=== PATIENT | female | born 1955 | race Caucasian/White ===

== ENCOUNTER 2020-02-17 07:28 | Inpatient (IN) ==
[2020-02-17] MEDS ORDERED: IOPAMIDOL 100 ML BOTTLE IV ONE (07:29)
[2020-02-17] MEDS ORDERED: 0.9 % SODIUM CHLORIDE 1,000 ML IV ONE (07:41)
[2020-02-17] MEDS ORDERED: IPRATROPIUM/ALBUTEROL 3 ML AMPUL.NEB NEB ONE (07:41)
--- NOTE | 2020-02-17 07:54 | Emergency Department Note ---
SOB HPI General Chief Complaint: Shortness of Breath/Dyspnea Stated Complaint: SOB Time Seen by Provider: 02/17/20 07:31 Source: patient Mode of arrival: ambulatory Limitations: no limitations History of Present Illness HPI Narrative: Narrative: 64-year-old female comes in for shortness of breath x9 days since leaving the hospital after getting her right knee worked on. Dr. Herzog replaced her right knee here on the . She was discharged on the and has had trouble breathing ever since. She does have a history of asthma but never smoked. Today it just got so bad that she came in. Oxygen levels are low 90s. She was on aspirin but this was upsetting her stomach and causing nausea- so she stopped this 3 days ago. She has been vomiting and having diarrhea as well. No fever or exposure to COVID. She has been up and around and thinks the knee is actually healing well. Related Data Home Medications Medication Instructions Recorded Confirmed trazodone 150 mg tablet 150 mg PO HS 05/22/16 02/17/20 citalopram 40 mg tablet 40 mg PO DAILY 90 Days 05/05/18 02/17/20 albuterol sulfate 1 inh INHALATION DAILYP PRN 02/01/20 02/17/20 cyclobenzaprine 5 mg PO DAILYP PRN 02/01/20 02/17/20 folic acid 1 mg PO DAILY 02/01/20 02/17/20 furosemide 20 mg PO DAILY 02/01/20 02/17/20 meloxicam 15 mg PO DAILY 02/01/20 02/17/20 metoprolol tartrate 50 mg PO BID 02/01/20 02/17/20 potassium chloride [Klor-Con M20] 20 meq PO [facility] 02/01/20 02/17/20 pregabalin [Lyrica] 150 mg PO BID 02/01/20 02/17/20 Previous Rx's Medication Instructions Recorded aspirin 325 mg PO BID #60 tab 02/07/20 docusate sodium 100 mg PO BID #60 cap 02/07/20 hydrocodone-acetaminophen 1 - 2 tab PO Q4HP PRN #75 tab 02/07/20 methotrexate sodium 2.5 mg tablet See Rx Instructions .ROUTE 02/07/20 .COMPLEX #40 unknown measurement unit code: each Allergies Allergy/AdvReac Type Severity Reaction Status Date / Time No Known Drug Allergies Allergy Verified 02/17/20 07:28 Review of Systems ROS ROS Narrative: Narrative: All systems ED: reviewed and negative except as stated. [facility] Narrative Patient History Narrative: Narrative: Medical/Surgical/Family History All Active Problems (Updated 02/17/20 @ 08:34 by Miguel Sanon MD) Respiratory failure with hypoxia (Acute) Hip pain, bilateral (Acute) Back pain (Chronic) Encounter for long-term current use of high risk medication (Acute) Hx of abdominal hysterectomy (Chronic) Rheumatoid arthritis (Acute) Abnormal laboratory test (Chronic) Constipation, unspecified (Chronic) Thoracic back pain (Chronic) Bilateral knee pain (Acute) Head trauma (Chronic) Fibromyalgia (Acute) Depression with anxiety (Chronic) DJD (degenerative joint disease) (Acute) Sleep disorder (Chronic) Memory loss (Chronic) Neuropathy (Chronic) Chronic low back pain (Chronic) SOB (shortness of breath) (Chronic) Fatigue (Chronic) Leukocytosis (Chronic) Headache (Chronic) Osteopenia (Chronic) Hypovitaminosis D (Chronic) Neck pain (Chronic) Sicca syndrome (Chronic) Thrombocytopenia (Chronic) Hypertension (Chronic) Peripheral edema (Chronic) Dysphagia (Chronic) Closed displaced fracture of surgical neck of right humerus (Chronic) Abdominal pain (Chronic) Medical History (Updated 02/17/20 @ 08:34 by Miguel Sanon MD) Abdominal pain (Chronic) Abnormal laboratory test (Chronic) Back pain (Chronic) Bilateral knee pain (Acute) Chronic low back pain (Chronic) Closed displaced fracture of surgical neck of right humerus (Chronic) Constipation, unspecified (Chronic) Depression with anxiety (Chronic) DJD (degenerative joint disease) (Acute) Dysphagia (Chronic) Encounter for long-term current use of high risk medication (Acute) Fatigue (Chronic) Fibromyalgia (Acute) Head trauma (Chronic) Headache (Chronic) Hip pain, bilateral (Acute) Hypertension (Chronic) Hypovitaminosis D (Chronic) Leukocytosis (Chronic) Memory loss (Chronic) Neck pain (Chronic) Neuropathy (Chronic) Osteopenia (Chronic) Peripheral edema (Chronic) Rheumatoid arthritis (Acute) Sicca syndrome (Chronic) Sleep disorder (Chronic) SOB (shortness of breath) (Chronic) Thoracic back pain (Chronic) Thrombocytopenia (Chronic) Surgical History History of carpal tunnel surgery of right wrist (Chronic) History of knee replacement (Acute) Hx of abdominal hysterectomy (Chronic) Hx of appendectomy (Chronic 12/25/09) Hx of arthroscopy of right knee (Chronic) 2006 Hx of section (Chronic) x2 Hx of heart surgery (Chronic) 1986 Hx of surgical procedure (Chronic) tumor removed Family History Father Myocardial infarction Social History Smoking Status: Never smoker Alcohol Intake Frequency: a few times a month Exam Narrative Narrative: Narrative: Overweight female, with some respiratory distress. She is unable to speak in full sentences without gasping for air. Normocephalic atraumatic. Conjunctive are clear sclerae white nonicteric. No nasal discharge or congestion. Oropharynx pink and moist. Neck is supple without lymphadenopathy or thyromegaly. Heart is regular rhythm but mildly tachycardic. She is also tachypneic. I cannot hear a murmur. Lungs are basically clear to auscultation but body habitus limits. I do not hear any rales but she does hav e end expiratory wheezes. Abdomen is soft nontender nondistended. Looking at her right knee the wound site is not particularly erythematous. I see no drainage. Looks like it is healing well but significant compromise. She can move her legs around without difficulty. No pedal edema General Limitations: no limitations Course Vital Signs Vital signs: Vital Signs Temperature 97.4 F 02/17/20 07:28 Pulse Rate 97 H 02/17/20 07:28 Respiratory Rate 24 H 02/17/20 07:28 Blood Pressure 169/118 02/17/20 07:28 Pulse Oximetry (%) 90 02/17/20 07:28 Temperature 97.4 F 02/17/20 07:28 Pulse Rate 97 H 02/17/20 07:28 Respiratory Rate 24 H 02/17/20 08:21 Blood Pressure 169/118 02/17/20 07:28 Pulse Oximetry (%) 90 02/17/20 07:28 MDM MDM Narrative Medical decision making narrative: Narrative: Dyspnea x9 days status post right knee replacement not on anticoagulant secondary to stomach upset. Differential diagnosis includes PE/DVT versus asthma exacerbation versus pneumonia or other pulmonary infection. We will start with work-up with x-ray and laboratory. We will give her a breathing treatment and titrate oxygen. Get ABG. EKG shows repolarization abnormality in the V1 through V6 leads-unclear significance. Continue work-up awaiting labs. Chest x-ray shows possible left lower lobe infiltrate but this is equivocal as it is portable. We will order CT angiogram to further evaluate and check for pulmonary emboli. Arterial blood gas shows hyperventilation with elevated pH. However her PO2 is low so we will start her on oxygen. Chem-8 is unrevealing Shift change came and patient will be checked out to Dr. rodriguez for further care and evaluation Lab Data Lab results reviewed: Yes I reviewed the patient's lab results. Lab results narrative: Arterial blood gas shows pH 7.49 PCO2 of 30 PO2 of 50 lactic acid of 2.0 which is normal Result diagrams: 02/17/20 07:42 Labs: Lab Results 02/17/20 Range/Units 07:42 POC Hct 38.0 (36.0-48.0) % POC Sodium 141 (133-145) mmol/L POC Potassium 4.3 (3.3-5.1) mmol/L POC Chloride 107 (96-108) mmol/L POC Total CO2 20 L (22-30) mmol/L POC BUN 18 (8-23) mg/dl POC Creatinine 0.7 (0.6-1.1) mg/dl POC Glucose 157 H (70-105) mg/dL POC WB Ioniz Calcium 1.18 (1.16-1.32) mmol/L Radiology Data Radiology results reviewed: Yes I reviewed the patient's radiology results. Radiology results narrative: Chest x-ray one-view portable shows large heart possible left lower lobe infiltrate but this could be artifact. EKG Data EKG #1: EKG attestation: Yes I reviewed and interpreted this EKG. EKG results narrative: EKG shows sinus rhythm with a rate of 92. She does have T wave inversion in V1 through V6 which is new compared to 10 days ago- this repolarization abnormality could represent ischemia in the right context however it is nonspecific Discharge Plan Patient/Caregiver Discharge Instructions Pt seen by VETERINARY PHYSIOLOGIST/PA only: No Clinical Impression: Respiratory failure with hypoxia Qualifiers: Chronicity: acute Qualified Code(s): J96.01 - Acute respiratory failure with h ypoxia Patient Disposition: Still a Patient Condition: Serious Follow up with: Shanel Obrien ARNP [Primary Care Provider] - Prescriptions: No Action methotrexate sodium 2.5 mg tablet See Rx Instructions .ROUTE .COMPLEX Qty: 40 RF: 0 trazodone 150 mg tablet 150 mg PO HS RF: 0 citalopram 40 mg tablet 40 mg PO DAILY 90 Days RF: 0 potassium chloride [Klor-Con M20] 20 mEq Tablet,Er Particles/Crystals 20 meq PO [facility] RF: 0 metoprolol tartrate 50 mg Tablet 50 mg PO BID RF: 0 furosemide 20 mg Tablet 20 mg PO DAILY RF: 0 cyclobenzaprine 5 mg Tablet 5 mg PO DAILYP PRN (Reason: MUSCLE SPASMS) RF: 0 pregabalin [Lyrica] 150 mg Capsule 150 mg PO BID RF: 0 meloxicam 15 mg tablet 15 mg PO DAILY RF: 0 folic acid 1 mg tablet 1 mg PO DAILY RF: 0 albuterol sulfate 90 mcg/actuation Hfa Aerosol Inhaler 1 inh INHALATION DAILYP PRN (Reason: Shortness Of Breath) RF: 0 hydrocodone-acetaminophen 10-325 mg Tablet 1 - 2 tab PO Q4HP PRN (Reason: Pain Level 3-6) Qty: 75 RF: 0 aspirin 325 mg Tablet,Delayed Release (Dr/Ec) 325 mg PO BID Qty: 60 RF: 0 docusate sodium 100 mg Capsule 100 mg PO BID Qty: 60 RF: 0
[2020-02-17 08:06] LABS: POC Blood Urea Nitrogen 18 mg/dl (8-23); POC CO2 20 mmol/L (22-30); POC Calcium, Ionized 1.18 mmol/L (1.16-1.32); POC Chloride 107 mmol/L (96-108); POC Creatinine 0.7 mg/dl (0.6-1.1); POC Glucose, Random 157 mg/dL (70-105); POC Potassium 4.3 mmol/L (3.3-5.1); POC Sodium 141 mmol/L (133-145)
[2020-02-17 08:30] LABS: Basophils # (Auto) 0.06 K/mcL (0.00-0.30); Basophils % (Auto) 0.4 % (0.0-2.0); Eosinophils # (Auto) 0.01 K/mcL (0.00-0.70); Eosinophils % (Auto) 0.1 % (0.0-7.0); Granulocytes % (Auto) 83.3 % (38.0-78.0); Hematocrit 38.2 % (34.1-44.9); Hemoglobin 12.4 g/dL (11.2-15.7); Lymphocytes # (Auto) 1.78 K/mcL (1.50-4.80); Lymphocytes % (Auto) 10.4 % (15.5-49.0); Mean Cell Volume 99.7 fL (80.0-100.0); Mean Corpuscular HGB Conc 32.5 g/dL (31.0-36.0); Mean Platelet Volume 9.3 fL (7.4-10.4); Monocytes # (Auto) 0.99 K/mcL (0.10-0.90); Monocytes % (Auto) 5.8 % (1.0-12.0); Platelet Count 345 K/mcL (140-440); RBC 3.83 M/mcL (3.59-5.38); Red Cell Distribution Width 15.4 % (11.5-14.5); WBC 17.1 K/mcL (4.50-11.00)
--- NOTE | 2020-02-17 09:23 | Cat Scan Report ---
CLINICAL INFORMATION: Dyspnea and elevated d-dimer. COMPARISON: None. TECHNIQUE: ml of Isovue-370 were injected intravenously. Using SmartPrep to maximize pulmonary artery opacification, .625mm helical slices were obtained from the lung apices through the lung bases. Following reconstruction, 2.5 mm sagittal, coronal, and axial reformations were processed. The exam was reviewed at mediastinal, lung, and bone windows. The exam was performed using radiation dose optimization techniques including, but not limited to, automated exposure control, adjustment of the mA and/or kV according to patient size and use of iterative reconstruction technique. FINDINGS: There are multiple pulmonary emboli: Subocclusive in the lateral right pulmonary artery with occlusive emboli extending into the right middle lobe occluding the medial and lateral segments, anterior and posterior segments of the right upper lobe, subocclusive right lower lobe extending into the superior, medial lateral, and posterior basilar segmental arteries. On the left side, there are occlusive emboli in the anterior segment left upper lobe and right lower lobe artery with extension into the anterior medial and lateral basilar segments. The central pulmonary arteries are enlarged compatible with pulmonary hypertension related to the embolic load. In addition, the right atrium and ventricle are mildly enlarged and there is contrast reflux into the intrahepatic IVC. Findings are supportive of elevated right heart pressures. Aorta is unremarkable. There is no adenopathy in the mediastinal hilar or axillary regions. Esophagus grossly normal. Thyroid unremarkable. Pulmonary parenchymal windows show the lungs are clear. No effusions. Bones and soft tissues are normal. IMPRESSION: 1. Multiple bilateral pulmonary emboli with increased central pulmonary artery diameter and asymmetric enlargement of the right heart chambers compatible with pulmonary hypertension and elevated right heart pressures related to the embolic load Interpreted and Authenticated by: Mykel Mohr 02/17/20
--- NOTE | 2020-02-17 09:24 | XRay Report ---
CLINICAL INFORMATION: Dyspnea COMPARISON: 05/22/2016 TECHNIQUE: Portable FINDINGS: The heart size, mediastinum and pulmonary vessels are unremarkable. The lungs are clear. There are no effusions. The bones and soft tissues are within normal limits. IMPRESSION: Normal chest. Interpreted and Authenticated by: Mykel Mohr 02/17/20
--- NOTE | 2020-02-17 10:48 | Ultrasound Report ---
CLINICAL INFORMATION: History of pulmonary embolus COMPARISON: None. FINDINGS: The entire deep venous system, both lower extremities, including the common femoral, superficial femoral, popliteal and paired trifurcation calf veins are easily compressible and show normal venous blood flow on color and spectral Doppler. No evidence of thrombus IMPRESSION: Negative exam - no evidence of deep vein thrombosis in either lower extremity. Interpreted and Authenticated by: Mykel Mohr 02/17/20
[2020-02-17] MEDS ORDERED: METOPROLOL TARTRATE 50 MG TABLET PO ONE (11:24)
[2020-02-17] MEDS ORDERED: APIXABAN 5 MG TABLET PO SCH ×2 (11:26→21:00)
--- NOTE | 2020-02-17 12:54 | Internal Med History&Physical ---
HPI History of Present Illness Patient information: Note initiated : 02/17/20 at 12:54 pm Service Date, if different from initiated Date: [] Patient: Candie Gross a 64 y/o F admitted on for Shortness of breath. Chief Complaint: [] History of present illness: Ms. Gross is a 64 year old F morbidly obese with a BMI over 37 and recently underwent right total knee arthroplasty on 02/06. Patient was discharged following surgery however started experiencing shortness of breath a week ago. Symptoms progressed to the point patient could barely lie down and was unable to function. Her shortness of breath progressed from maximal exertion now at rest. She denied associated lightheadedness palpitation. She denies use of oral contraceptive/history of bleeding clotting disorder. She denies prior history of cancer. She further denies smoking. She denies associated fever chills or productive sputum. With increasing concerns she was directed by her daughter to visit ER for evaluation. Initial work-up was consistent with pulmonary emboli with hypoxia and ABG PO2 in 30s. Patient was started on oxygen. Intervention radiology was consulted for possible catheter TPA. Based on recommendations to initiate anticoagulation by IR hospitalist service was consulted. At the time of evaluation patient is alert and oriented. She is able to talk in near full sentences. She is on 2 L oxygen. Profoundly dyspneic. She endorses history as above. She denies pleuritic chest pain, hemoptysis. Review of systems 10 point review system was performed and is negative except for ones discussed above [facility] Medical History (Updated 02/17/20 @ 08:34 by Miguel Sanon MD) Abdominal pain (Chronic) Abnormal laboratory test (Chronic) Back pain (Chronic) Bilateral knee pain (Acute) Chronic low back pain (Chronic) Closed displaced fracture of surgical neck of right humerus (Chronic) Constipation, unspecified (Chronic) Depression with anxiety (Chronic) DJD (degenerative joint disease) (Acute) Dysphagia (Chronic) Encounter for long-term current use of high risk medication (Acute) Fatigue (Chronic) Fibromyalgia (Acute) Head trauma (Chronic) Headache (Chronic) Hip pain, bilateral (Acute) Hypertension (Chronic) Hypovitaminosis D (Chronic) Leukocytosis (Chronic) Memory loss (Chronic) Neck pain (Chronic) Neuropathy (Chronic) Osteopenia (Chronic) Peripheral edema (Chronic) Rheumatoid arthritis (Acute) Sicca syndrome (Chronic) Sleep disorder (Chronic) SOB (shortness of breath) (Chronic) Thoracic back pain (Chronic) Thrombocytopenia (Chronic) Surgical History History of carpal tunnel surgery of right wrist (Chronic) History of knee replacement (Acute) Hx of abdominal hysterectomy (Chronic) Hx of appendectomy (Chronic 12/25/09) Hx of arthroscopy of right knee (Chronic) 2006 Hx of section (Chronic) x2 Hx of heart surgery (Chronic) 1985 Hx of surgical procedure (Chronic) tumor removed Family History Father Myocardial infarction Social History (Updated 11/30/19 @ 10:10 by Larry Weaver MD) marital status: smoking status: Never smoker alcohol intake frequency: a few times a month MEDS/ALLERGIES Home Medications and Allergies Home Medications Medication Instructions Recorded Confirmed Type trazodone 150 mg tablet 150 mg PO HS 05/22/16 02/17/20 History citalopram 40 mg tablet 40 mg PO DAILY 90 Days 05/05/18 02/17/20 History albuterol sulfate 1 inh INHALATION DAILYP PRN 02/01/20 02/17/20 History cyclobenzaprine 5 mg PO DAILYP PRN 02/01/20 02/17/20 History folic acid 1 mg PO DAILY 02/01/20 02/17/20 History furosemide 20 mg PO DAILY 02/01/20 02/17/20 History meloxicam 15 mg PO DAILY 02/01/20 02/17/20 History metoprolol tartrate 50 mg PO BID 02/01/20 02/17/20 History potassium chloride [Klor-Con M20] 20 meq PO [facility] 02/01/20 02/17/20 History pregabalin [Lyrica] 150 mg PO BID 02/01/20 02/17/20 History aspirin 325 mg PO BID #60 tab 02/07/20 02/17/20 Rx docusate sodium 100 mg PO BID #60 cap 02/07/20 02/17/20 Rx hydrocodone-acetaminophen 1 - 2 tab PO Q4HP PRN #75 tab 02/07/20 02/17/20 Rx methotrexate sodium 2.5 mg tablet See Rx Instructions .ROUTE 02/07/20 02/17/20 Rx .COMPLEX #40 unknown measurement unit code: each Allergies Allergy/AdvReac Type Severity Reaction Status Date / Time No Known Drug Allergies Allergy Verified 02/17/20 07:28 EXAM Constitutional Vitals: Temp Pulse Resp BP Pulse Ox 97.4 F 80 24 H 201/115 96 02/17/20 07:28 02/17/20 12:48 02/17/20 12:48 02/17/20 12:01 02/17/20 12:48 Morbidly obese Head normocephalic Oral cavity moist No ear nose discharge Eye movement symmetrical Neck Short supple no lymphadenopathy S1-S2 regular tachycardia Labored breathing Nondistended nontender abdomen Lower extremity no cyanosis clubbing or joint swelling Skin no suspicious lesion Psych anxious but alert cooperative Neuro normal higher function DATA Data Completed and Pending Labs on day of discharge: Labs from last 24 hours 02/17/20 02/17/20 02/17/20 07:57 07:42 07:42 WBC RBC Hgb Hct POC Hct 38.0 MCV MCH MCHC RDW Plt Count MPV Gran % Lymph % (Auto) Sebastian % (Auto) Eos % (Auto) Baso % (Auto) Gran # Lymph # (Auto) Sebastian # (Auto) Eos # (Auto) Baso # (Auto) VBG Lactic Acid 2.2 H POC Sodium 141 POC Potassium 4.3 POC Chloride 107 POC Total CO2 20 L POC BUN 18 POC Creatinine 0.7 POC Glucose 157 H POC WB Ioniz Calcium 1.18 Troponin T < 0.01 NT-Pro-B Natriuret Pep 8461.0 H Lipase 24 Procalcitonin 02/17/20 02/17/20 07:42 07:42 WBC 17.1 H RBC 3.83 Hgb 12.4 Hct 38.2 POC Hct MCV 99.7 MCH 32.4 MCHC 32.5 RDW 15.4 H Plt Count 345 MPV 9.3 Gran % 83.3 H Lymph % (Auto) 10.4 L Sebastian % (Auto) 5.8 Eos % (Auto) 0.1 Baso % (Auto) 0.4 Gran # 14.24 H Lymph # (Auto) 1.78 Sebastian # (Auto) 0.99 H Eos # (Auto) 0.01 Baso # (Auto) 0.06 VBG Lactic Acid POC Sodium POC Potassium POC Chloride POC Total CO2 POC BUN POC Creatinine POC Glucose POC WB Ioniz Calcium Troponin T NT-Pro-B Natriuret Pep Lipase Procalcitonin 0.10 A/P Narrative A/P Narrative: * Multifocal PE-evident on CT chest. On anticoagulation. Precipitated by recent surgery/immobilization. No indication for TPA. Check echocardiogram as CT reveals asymmetric enlargement of right ventricle and associated pulmonary hypertension * Acute hypoxic respiratory failure secondary to multi focal PE-supplemental oxygen. * History of reactive disease continue as needed bronchodilators * Anxiety disorder continue citalopram * Recent knee surgery/associated pain continue management on oral opioid * Hypertension continue metoprolol * Neuropathy continue Lyrica * Full code * Prophylaxis on full dose anticoagulation Plan * Inpatient PCU admit * Full dose anticoagulation * Pre-existing medical condition management as above * Echocardiogram * PT OT nutrition support * Pain management Time Spent With Patient Time: Total time spent is greater than 50% in coordination of care (as documented) at patient's floor/unit and/or counseling patient:
[2020-02-17] MEDS ORDERED: POLYETHYLENE GLYCOL 3350 17 GM PACKET PO PRN (13:49)
[2020-02-17] MEDS ORDERED: ALBUTEROL SULFATE 200 PUFF INHALER INH PRN (13:49)
[2020-02-17] MEDS ORDERED: ACETAMINOPHEN 325 MG TABLET PO PRN (13:49)
[2020-02-17] MEDS ORDERED: MAGNESIUM SULFATE 2 GM/50 ML BAG IV PRN (13:49)
[2020-02-17] MEDS ORDERED: HYDROcodone/APAP 10/325MG TABLET PO PRN (13:49)
[2020-02-17] MEDS ORDERED: BISACODYL 10 MG SUPP.RECT PR PRN (13:49)
[2020-02-17] MEDS ORDERED: ONDANSETRON 4 MG ODT TABLET SL PRN (13:49)
[2020-02-17] MEDS ORDERED: POTASSIUM CHLORIDE 20 MEQ PACKET PO PRN (13:49)
[2020-02-17] MEDS ORDERED: CYCLOBENZAPRINE 10 MG TABLET PO PRN (13:59)
--- NOTE | 2020-02-17 14:11 | Emergency Department Note ---
SOB HPI General Chief Complaint: Shortness of Breath/Dyspnea Stated Complaint: SOB Time Seen by Provider: 02/17/20 07:31 Source: patient Mode of arrival: ambulatory Limitations: no limitations History of Present Illness HPI Narrative: Narrative: I took over care of this patient at [address] Sanon. Related Data Home Medications Medication Instructions Recorded Confirmed trazodone 150 mg tablet 150 mg PO HS 05/22/16 02/17/20 citalopram 40 mg tablet 40 mg PO DAILY 90 Days 05/05/18 02/17/20 albuterol sulfate 1 inh INHALATION DAILYP PRN 02/01/20 02/17/20 cyclobenzaprine 5 mg PO DAILYP PRN 02/01/20 02/17/20 folic acid 1 mg PO DAILY 02/01/20 02/17/20 furosemide 20 mg PO DAILY 02/01/20 02/17/20 meloxicam 15 mg PO DAILY 02/01/20 02/17/20 metoprolol tartrate 50 mg PO BID 02/01/20 02/17/20 potassium chloride [Klor-Con M20] 20 meq PO [facility] 02/01/20 02/17/20 pregabalin [Lyrica] 150 mg PO BID 02/01/20 02/17/20 Previous Rx's Medication Instructions Recorded aspirin 325 mg PO BID #60 tab 02/07/20 docusate sodium 100 mg PO BID #60 cap 02/07/20 hydrocodone-acetaminophen 1 - 2 tab PO Q4HP PRN #75 tab 02/07/20 methotrexate sodium 2.5 mg tablet See Rx Instructions .ROUTE 02/07/20 .COMPLEX #40 unknown measurement unit code: each Allergies Allergy/AdvReac Type Severity Reaction Status Date / Time No Known Drug Allergies Allergy Verified 02/17/20 07:28 Review of Systems ROS ROS Narrative: Narrative: PFSH Narrative Patient History Narrative: Narrative: Medical/Surgical/Family History All Active Problems (Updated 02/17/20 @ 14:11 by Jonathan Dozier MD) Respiratory failure with hypoxia (Acute) Pulmonary emboli (Acute) Hip pain, bilateral (Acute) Back pain (Chronic) Encounter for long-term current use of high risk medication (Acute) Hx of abdominal hysterectomy (Chronic) Rheumatoid arthritis (Acute) Abnormal laboratory test (Chronic) Constipation, unspecified (Chronic) Thoracic back pain (Chronic) Bilateral knee pain (Acute) Head trauma (Chronic) Fibromyalgia (Acute) Depression with anxiety (Chronic) DJD (degenerative joint disease) (Acute) Sleep disorder (Chronic) Memory loss (Chronic) Neuropathy (Chronic) Chronic low back pain (Chronic) SOB (shortness of breath) (Chronic) Fatigue (Chronic) Leukocytosis (Chronic) Headache (Chronic) Osteopenia (Chronic) Hypovitaminosis D (Chronic) Neck pain (Chronic) Sicca syndrome (Chronic) Thrombocytopenia (Chronic) Hypertension (Chronic) Peripheral edema (Chronic) Dysphagia (Chronic) Closed displaced fracture of surgical neck of right humerus (Chronic) Abdominal pain (Chronic) Medical History (Updated 02/17/20 @ 14:11 by Jonathan Dozier MD) Abdominal pain (Chronic) Abnormal laboratory test (Chronic) Back pain (Chronic) Bilateral knee pain (Acute) Chronic low back pain (Chronic) Closed displaced fracture of surgical neck of right humerus (Chronic) Constipation, unspecified (Chronic) Depression with anxiety (Chronic) DJD (degenerative joint disease) (Acute) Dysphagia (Chronic) Encounter for long-term current use of high risk medication (Acute) Fatigue (Chronic) Fibromyalgia (Acute) Head trauma (Chronic) Headache (Chronic) Hip pain, bilateral (Acute) Hypertension (Chronic) Hypovitaminosis D (Chronic) Leukocytosis (Chronic) Memory loss (Chronic) Neck pain (Chronic) Neuropathy (Chronic) Osteopenia (Chronic) Peripheral edema (Chronic) Rheumatoid arthritis (Acute) Sicca syndrome (Chronic) Sleep disorder (Chronic) SOB (shortness of breath) (Chronic) Thoracic back pain (Chronic) Thrombocytopenia (Chronic) Surgical History History of carpal tunnel surgery of right wrist (Chronic) History of knee replacement (Acute) Hx of abdominal hysterectomy (Chronic) Hx of appendectomy (Chronic 12/25/09) Hx of arthroscopy of right knee (Chronic) 2006 Hx of section (Chronic) x2 Hx of heart surgery (Chronic) 1985 Hx of surgical procedure (Chronic) tumor removed Family History Father Myocardial infarction Social History Smoking Status: Never smoker Alcohol Intake Frequency: a few times a month Exam Narrative Narrative: Narrative: General Limitations: no limitations Course Vital Signs Vital signs: Vital Signs Temperature 97.4 F 07/30/20 07:28 Pulse Rate 97 H 02/17/20 07:28 Respiratory Rate 24 H 02/17/20 07:28 Blood Pressure 169/118 02/17/20 07:28 Pulse Oximetry (%) 90 02/17/20 07:28 Temperature 97.4 F 02/17/20 13:49 Pulse Rate 77 02/17/20 13:13 Respiratory Rate 20 02/17/20 13:49 Blood Pressure 144/99 02/17/20 13:49 Pulse Oximetry (%) 94 02/17/20 13:49 MDM MDM Narrative Medical decision making narrative: Narrative: This patient does have multiple pulmonary emboli on her CTA. I discussed the case with Dr. Giles who reviewed the films and did not feel the patient needed thrombolysis. We did do venous Doppler both legs and they were negative. Dr. Giles had mentioned that he would do a Krystle filter if she had clot in her leg still. The patient was started on Eliquis 10 mg p.o. She had an O2 saturation of 85% on room air. I discussed case with Dr. Garcia and she will be admitted to the hospital here for oxygen treatment. Lab Data Lab results reviewed: Yes I reviewed the patient's lab results. Result diagrams: 02/17/20 07:42 Labs: Lab Results 02/17/20 02/17/20 02/17/20 Range/Units 07:42 07:42 07:42 WBC 17.1 H (4.50-11.00) K/mcL RBC 3.83 (3.59-5.38) M/mcL Hgb 12.4 (11.2-15.7) g/dL Hct 38.2 (34.1-44.9) % POC Hct (36.0-48.0) % MCV 99.7 (80.0-100.0) fL MCH 32.4 (26.0-34.0) pg MCHC 32.5 (31.0-36.0) g/dL RDW 15.4 H (11.5-14.5) % Plt Count 345 (140-440) K/mcL MPV 9.3 (7.4-10.4) fL Gran % 83.3 H (38.0-78.0) % Lymph % (Auto) 10.4 L (15.5-49.0) % [place] % (Auto) 5.8 (1.0-12.0) % Eos % (Auto) 0.1 (0.0-7.0) % Baso % (Auto) 0.4 (0.0-2.0) % Gran # 14.24 H (1.80-8.00) K/mcL Lymph # (Auto) 1.78 (1.50-4.80) K/mcL [place] # (Auto) 0.99 H (0.10-0.90) K/mcL Eos # (Auto) 0.01 (0.00-0.70) K/mcL Baso # (Auto) 0.06 (0.00-0.30) K/mcL VBG Lactic Acid (0.5-2.0) mmol/L POC Sodium (133-145) mmol/L POC Potassium (3.3-5.1) mmol/L POC Chloride (96-108) mmol/L POC Total CO2 (22-30) mmol/L POC BUN (8-23) mg/dl POC Creatinine (0.6-1.1) mg/dl POC Glucose (70-105) mg/dL POC WB Ioniz Calcium (1.16-1.32) mmol/L Troponin T < 0.01 (0-0.03) ng/ml NT-Pro-B Natriuret Pep (0-125) pg/ml Lipase (7-60) U/L Procalcitonin 0.10 (<0.10) ng/mL 02/17/20 02/17/20 Range/Units 07:42 07:57 WBC (4.50-11.00) K/mcL RBC (3.59-5.38) M/mcL Hgb (11.2-15.7) g/dL Hct (34.1-44.9) % POC Hct 38.0 (36.0-48.0) % MCV (80.0-100.0) fL MCH (26.0-34.0) pg MCHC (31.0-36.0) g/dL RDW (11.5-14.5) % Plt Count (140-440) K/mcL MPV (7.4-10.4) fL Gran % (38.0-78.0) % Lymph % (Auto) (15.5-49.0) % [place] % (Auto) (1.0-12.0) % Eos % (Auto) (0.0-7.0) % Baso % (Auto) (0.0-2.0) % Gran # (1.80-8.00) K/mcL Lymph # (Auto) (1.50-4.80) K/mcL [place] # (Auto) (0.10-0.90) K/mcL Eos # (Auto) (0.00-0.70) K/mcL Baso # (Auto) (0.00-0.30) K/mcL VBG Lactic Acid 2.2 H (0.5-2.0) mmol/L POC Sodium 141 (133-145) mmol/L POC Potassium 4.3 (3.3-5.1) mmol/L POC Chloride 107 (96-108) mmol/L POC Total CO2 20 L (22-30) mmol/L POC BUN 18 (8-23) mg/dl POC Creatinine 0.7 (0.6-1.1) mg/dl POC Glucose 157 H (70-105) mg/dL POC WB Ioniz Calcium 1.18 (1.16-1.32) mmol/L Troponin T (0-0.03) ng/ml NT-Pro-B Natriuret Pep 8461.0 H (0-125) pg/ml Lipase 24 (7-60) U/L Procalcitonin (<0.10) ng/mL Radiology Data Radiology results reviewed: Yes I reviewed the patient's radiology results. Discharge Plan Patient/Caregiver Discharge Instructions Pt seen by [employer] BUSINESS ANALYST/PA only: No Clinical Impression: Respiratory failure with hypoxia, Pulmonary emboli Patient Disposition: Xfer As Inpt ([facility]) Condition: Serious
[2020-02-17] MEDS ORDERED: APIXABAN 5 MG TABLET PO ONE (14:30)
[2020-02-17] MEDS: 0.9 % SODIUM CHLORIDE 10 ML SYRINGE IV SCH ×2 (14:56→22:43)
[2020-02-17] MEDS: ONDANSETRON 4 MG/2 ML VIAL IV PRN ×2 (17:20→23:44)
[2020-02-17] MEDS: APIXABAN 5 MG TABLET PO SCH (20:38)
[2020-02-17] MEDS: METOPROLOL TARTRATE 50 MG TABLET PO SCH (20:38)
[2020-02-17] MEDS: PREGABALIN 150 MG CAPSULE PO SCH (20:39)
[2020-02-17] MEDS: DOCUSATE SODIUM 100 MG CAPSULE PO SCH (20:40)
[2020-02-17] MEDS ORDERED: DOCUSATE SODIUM 100 MG CAPSULE PO SCH (21:00)
[2020-02-17] MEDS ORDERED: MELATONIN 3 MG TABLET PO PRN (21:00)
[2020-02-17] MEDS ORDERED: traZODone HCL 150 MG TABLET PO SCH (21:00)
[2020-02-17] MEDS ORDERED: SENNOSIDES/DOCUSATE SODIUM 1 TAB TABLET PO SCH (21:00)
[2020-02-18] MEDS: 0.9 % SODIUM CHLORIDE 10 ML SYRINGE IV SCH ×2 (05:21→13:46)
[2020-02-18 06:53] LABS: Hemoglobin 11.6 g/dL (11.2-15.7); Mean Cell Volume 103.9 fL (80.0-100.0); Mean Corpuscular HGB Conc 31.4 g/dL (31.0-36.0); Mean Platelet Volume 9.4 fL (7.4-10.4); Platelet Count 299 K/mcL (140-440); RBC 3.56 M/mcL (3.59-5.38); Red Cell Distribution Width 15.7 % (11.5-14.5)
[2020-02-18 07:10] LABS: ALT/SGPT 370 U/l (0-40); AST/SGOT 397 U/l (0-37); Albumin 3.5 gm/dL (3.2-5.2); Albumin/Globulin Ratio 1.2 (1.0-2.3); Alkaline Phosphatase 172 U/L (39-117); Bilirubin,Direct 0.3 mg/dL (0.0-0.3); Bilirubin,Total 0.7 mg/dL (0.0-1.0); Blood Urea Nitrogen 26 mg/dl (8-23); Calcium 9.2 mg/dl (8.6-10.4); Carbon Dioxide 21 mmol/L (22-30); Chloride 106 mmol/L (96-108); Glomerular Filtration Rate 69; Glucose 103 mg/dL (70-105); Phosphorous 3.9 mg/dL (2.7-4.5); Triglycerides 113 mg/dl (<150); Uric Acid 9.1 mg/dL (2.5-8.0)
[2020-02-18] MEDS ORDERED: POTASSIUM CHLORIDE 20 MEQ TABLET PO SCH (08:00)
[2020-02-18 08:22] LABS: Lactate Dehydrogenase 801 U/L (94-250)
[2020-02-18 08:59] LABS: Anisocytosis 1+ (NONE SEEN); Lymphocytes % 16 % (15-49); Macrocytosis 2+ (NONE SEEN); Metamyelocytes % 1 % (0-0); Monocytes % (Manual) 4 % (1-12); Nucleated Red Blood Cells 1 % (0-0); Platelet Estimate NORMAL (NORMAL); Polychromasia 1+ (NONE SEEN); RBC Morphology ABNORM (NORMAL); Segmented Neutrophils % 79 % (38-78)
[2020-02-18] MEDS ORDERED: FUROSEMIDE 20 MG TABLET PO SCH (09:00)
[2020-02-18] MEDS ORDERED: MULTIVIT,THER IRON,CA,FA & MIN 1 TABLET PO SCH (09:00)
[2020-02-18] MEDS ORDERED: MELOXICAM 7.5 MG TABLET PO SCH (09:00)
[2020-02-18] MEDS ORDERED: FOLIC ACID 1 MG TABLET PO SCH (09:00)
[2020-02-18] MEDS ORDERED: CITALOPRAM 20 MG TABLET PO SCH (09:00)
[2020-02-18] MEDS: DOCUSATE SODIUM 100 MG CAPSULE PO SCH (09:24)
[2020-02-18] MEDS: APIXABAN 5 MG TABLET PO SCH (09:24)
[2020-02-18] MEDS: METOPROLOL TARTRATE 50 MG TABLET PO SCH (09:24)
[2020-02-18] MEDS: PREGABALIN 150 MG CAPSULE PO SCH (09:25)
--- NOTE | 2020-02-18 10:32 | Internal Med Progress Note ---
SUBJECTIVE Subjective Patient information: Note initiated : 02/18/20 at 10:27 am Service Date, if different from initiated Date: [] Patient: Candie Gross a 64 y/o F admitted on 02/17/20 for Shortness of breath. Chief Complaint: [] History of present illness: Ms. Gross is a 64 year old F morbidly obese with a BMI over 37 and recently underwent right total knee arthroplasty on 02/06. Patient was discharged following surgery however started experiencing shortness of breath a week ago. Symptoms progressed to the point patient could barely lie down and was unable to function. Her shortness of breath progressed from maximal exertion now at rest. She denied associated lightheadedness pa lpitation. She denies use of oral contraceptive/history of bleeding clotting disorder. She denies prior history of cancer. She further denies smoking. She denies associated fever chills or productive sputum. With increasing concerns she was directed by her daughter to visit ER for evaluation. Initial work-up was consistent with pulmonary emboli with hypoxia and ABG PO2 in 30s. Patient was started on oxygen. Intervention radiology was consulted for possible catheter TPA. Based on recommendations to initiate anticoagulation by IR hospitalist service was consulted. At the time of evaluation patient is alert and oriented. She is able to talk in near full sentences. She is on 2 L oxygen. Profoundly dyspneic. She endorses history as above. She denies pleuritic chest pain, hemoptysis. 02/17-patient feels a lot better. Hemodynamic stable. On 2 L oxygen. Systolics at goal. No pleuritic chest pain. Shortness of breath improved. On anticoagulation on Eliquis. Discussed with patient's daughter. Daughter insists patient to be monitored in ICU. Echo pending. Case discussed with interventional radiology Dr. Mykel Giles who recommended against TPA based on size of emboli/RV LV ratio. No overnight telemetry events. Continue physical therapy. Constitutional Vitals: Vital Signs Temp Pulse Resp BP Pulse Ox 97.5 F 78 22 134/93 93 02/18/20 08:01 02/18/20 08:29 02/18/20 08:29 02/18/20 08:01 02/18/20 08:29 Period Temp Pulse Resp BP Sys/Stinson Pulse Ox Last 24 Hr 97.0 F-98.4 F 71-91 17-37 102-201/55-160 87-97 Intake and Output 02/17/20 02/18/20 02/18/20 21:59 05:59 13:59 Intake Total 480 Output Total 325 Balance 155 Weight 85.91 kg Alert oriented No anxiety nonlabored breathing Minimal right lower extremity swelling No telemetry events Intake & Output: Intake & Output 02/17/20 02/18/20 02/18/20 21:59 05:59 13:59 Intake Total 480 Output Total 325 Balance 155 Weight 85.91 kg Intake: Oral 480 Output: Void Amount 325 Other: Meal Dinner Percent of Meal Consumed 25% Urine Color Dark Yellow Stool Size Smear Stool Color Brown Stool Consistency Formed OBJ DATA Labs CBC & Chem 7: 02/18/20 04:47 02/18/20 04:47 Labs: Abnormal Lab Results 02/18/20 02/18/20 02/17/20 04:47 04:47 07:57 WBC 16.0 H RBC 3.56 L MCV 103.9 H RDW 15.7 H Gran % Lymph % (Auto) Gran # [place] # (Auto) Seg Neutrophils % 79 H Metamyelocytes % 1 H Nucleated RBCs 1 H RBC Morphology Abnorm A Polychromasia 1+ A Anisocytosis 1+ A Macrocytosis 2+ A VBG Lactic Acid 2.2 H Carbon Dioxide 21 L POC Total CO2 BUN 26 H POC Glucose Uric Acid 9.1 H Magnesium 2.7 H GGT 286 H AST 397 H ALT 370 H Alkaline Phosphatase 172 H Lactate Dehydrogenase 801 H NT-Pro-B Natriuret Pep 02/17/20 02/17/20 07:42 07:42 WBC 17.1 H RBC MCV RDW 15.4 H Gran % 83.3 H Lymph % (Auto) 10.4 L Gran # 14.24 H [place] # (Auto) 0.99 H Seg Neutrophils % Metamyelocytes % Nucleated RBCs RBC Morphology Polychromasia Anisocytosis Macrocytosis VBG Lactic Acid Carbon Dioxide POC Total CO2 20 L BUN POC Glucose 157 H Uric Acid Magnesium GGT AST ALT Alkaline Phosphatase Lactate Dehydrogenase NT-Pro-B Natriuret Pep 8461.0 H Meds: Medications Acetaminophen (Tylenol) 650 mg PO Q4-6HP PRN; Protocol PRN Reason: Per Pain Protocol/Fever > 101 Last Admin: 02/18/20 09:22 Dose: 650 mg Documented by: Hydrocodone Bitart/Acetaminophen ([place] 10/325mg) 1 - 2 tab PO Q4HP PRN; Protocol PRN Reason: Pain Level 3-6 Last Admin: 02/17/20 20:38 Dose: 1 tab Documented by: Albuterol Sulfate (Ventolin) 1 puff INH DAILYP PRN PRN Reason: Shortness Of Breath Apixaban (Eliquis) 10 mg PO BID [facility] Stop: 02/23/20 21:01 Last Admin: 02/18/20 09:24 Dose: 10 mg Documented by: Bisacodyl (Dulcolax) 10 mg TN Q2-3DAYS PRN PRN Reason: Constipation Citalopram Hydrobromide (Celexa) 40 mg PO DAILY [facility] Last Admin: 02/18/20 09:23 Dose: 40 mg Documented by: Cyclobenzaprine HCl (Flexeril) 5 mg PO DAILYP PRN PRN Reason: MUSCLE SPASMS Docusate Sodium (Colace) 100 mg PO BID [facility] Last Admin: 02/18/20 09:24 Dose: 100 mg Documented by: Folic Acid (Folic Acid) 1 mg PO DAILY [facility] Last Admin: 02/18/20 09:24 Dose: 1 mg Documented by: Furosemide (Lasix) 20 mg PO DAILY [facility] Last Admin: 02/18/20 09:24 Dose: 20 mg Documented by: Magnesium Sulfate (Magnesium Sulfate) 2 gm in 50 mls @ 50 mls/hr IV UD PRN PRN Reason: MG = or < 1.7 Iron Carb/Multivit/[place]/Folic Acid (Multivitamin W/Minerals) 1 tab PO DAILY [facility] Last Admin: 02/18/20 09:23 Dose: 1 tab Documented by: Melatonin (Melatonin 3mg Tablet) 3 mg PO HSP PRN PRN Reason: Insomnia Meloxicam (Mobic) 15 mg PO DAILY [facility] Last Admin: 02/18/20 09:25 Dose: 15 mg Documented by: Metoprolol Tartrate (Lopressor) 50 mg PO BID [facility] Last Admin: 02/18/20 09:24 Dose: 50 mg Documented by: Ondansetron HCl (Zofran Odt) 4 mg SL Q4-6HP PRN; Protocol PRN Reason: Nausea And Vomiting Ondansetron HCl (Zofran) 4 mg IV Q4-6HP PRN; Protocol PRN Reason: Nausea And Vomiting Last Admin: 02/17/20 23:44 Dose: 4 mg Documented by: Polyethylene Glycol (Miralax) 17 gm PO DAILYP PRN PRN Reason: Constipation [facility] Admin: 02/18/20 09:24 Dose: 20 meq Documented by: Potassium Chloride (Klor-Con) 40 meq PO DAILYP PRN PRN Reason: K+ < 3.5 Pregabalin (Lyrica) 150 mg PO BID [facility] Last Admin: 02/18/20 09:25 Dose: 150 mg Documented by: Senna/Docusate Sodium (Senna Plus Tablet) 1 tab PO [facility] Last Admin: 02/17/20 20:40 Dose: Not Given Documented by: Sodium Chloride (Saline Flush) 10 ml IV Q8 [facility] Last Admin: 02/18/20 05:21 Dose: 10 ml Documented by: Trazodone HCl (Desyrel) 150 mg PO [facility] Last Admin: 02/17/20 20:39 Dose: 150 mg Documented by: A/P Narrative A/P Narrative: * Multifocal PE-evident on CT chest. On anticoagulation. Precipitated by recent surgery/immobilization. No indication for TPA based on size of clot and RV LV ratio in the setting of stable hemodynamics. Await echocardiogram. Patient will need a minimum of 3 months anticoagulation followed by a lower extremity ultrasound for candidacy of discontinuation of anticoagulation * Acute hypoxic respiratory failure secondary to multi focal PE-on 2 L oxygen * History of reactive airway disease continue as needed bronchodilators * Anxiety disorder continue citalopram * Recent knee surgery/associated pain continue management on oral opioid/aggressive PT OT * Hypertension continue metoprolol * Neuropathy continue Lyrica * Full code * Prophylaxis on full dose anticoagulation Plan * PT OT * Apixaban * Pre-existing medical condition management as above * Await echocardiogram * PT OT nutrition support * Pain management * Discharge planning Time Spent With Patient Time: Total time spent is greater than 50% in coordination of care (as documented) at patient's floor/unit and/or counseling patient: QUALITY VTE Deep Vein Thrombosis/Pulmonary Embolism Present on Admission: No
[2020-02-18] MEDS ORDERED: 0.9 % SODIUM CHLORIDE 500 ML IV ONE ×3 (12:42→13:57)
[2020-02-18] MEDS ORDERED: NOREPINEPHRINE BITARTRATE 16 MG in 0.9 % SODIUM CHLORIDE 234 ML IV SCH (12:45)
[2020-02-18] MEDS ORDERED: 0.9 % SODIUM CHLORIDE 250 ML IV SCH (12:45)
[2020-02-18] MEDS ORDERED: GLUCAGON,HUMAN RECOMBINANT 1 MG VIAL IV ONE (12:49)
--- NOTE | 2020-02-18 12:58 | XRay Report ---
CLINICAL INFORMATION: Hypotension and dyspnea COMPARISON: 02/17/2020 TECHNIQUE: PA and Lateral views FINDINGS: The heart size, mediastinum and pulmonary vessels are unremarkable. The lungs are clear. There are no effusions. The bones and soft tissues are within normal limits. IMPRESSION: Normal chest. Interpreted and Authenticated by: Mykel Mohr 02/18/20
[2020-02-18] MEDS: ONDANSETRON 4 MG/2 ML VIAL IV PRN ×2 (13:30→13:31)
[2020-02-18] MEDS ORDERED: PROMETHAZINE 25 MG/ML VIAL ONE (13:52)
[2020-02-18] MEDS ORDERED: PROMETHAZINE 25 MG/ML VIAL IV PRN (13:55)
[2020-02-18] MEDS ORDERED: PIPERACILLIN SODIUM/TAZOBACTAM 3.375 GM in DEXTROSE 5% IN WATER 50 ML IV SCH (14:00)
--- NOTE | 2020-02-18 14:54 | XRay Report ---
CLINICAL INFORMATION: Central Line Placement COMPARISON: 02/18/2020 FINDINGS: Right IJ central line tip overlies the SVC right atrial junction. No pneumothorax or other complication from line placement. The heart is mildly enlarged, but stable. Mediastinum and pulmonary vessels are normal. There is minor right basilar atelectasis. IMPRESSION: Underlying satisfactory satisfactory position. Mild cardiomegaly Interpreted and Authenticated by: Mykel Mohr 02/18/20
[2020-02-18] MEDS ORDERED: 0.9 % SODIUM CHLORIDE 1,000 ML IV SCH (15:00)
[2020-02-18] MEDS ORDERED: ALTEPLASE 100 MG/100 ML VIAL IV ONE (16:13)
--- NOTE | 2020-02-18 16:41 | Transfer Summary ---
Discharge Provider Provider Patient information: Note initiated : 02/18/20 at 4:35 pm Service Date, if different from initiated Date: [] Patient: Candie Gross 64 y/o F admitted on 02/17/20 for Shortness of breath. Transfer diagnosis * Multifocal PE-with shock. Patient was initially on Eliquis however due to necrotic shock 50 mg TPA infusion started over 1 hour. * Acute hypoxic respiratory failure secondary to multi focal PE-on noninvasive ventilation at 40% FiO2 * Recent right knee arthroplasty Brief hospital course History of present illness: Ms. Gross is a 64 year old F morbidly obese with a BMI over 37 and recently underwent right total knee arthroplasty on 02/06. Patient was discharged following surgery however started experiencing shortness of breath a week ago. Symptoms progressed to the point patient could barely lie down and was unable to function. Her shortness of breath progressed from maximal exertion now at rest. She denied associated lightheadedness palpitation. She denies use of oral contraceptive/history of bleeding clotting disorder. She denies prior history of cancer. She further denies smoking. She denies associated fever chills or productive sputum. With increasing concerns she was directed by her daughter to visit ER for evaluation. Initial work-up was consistent with pulmonary emboli with hypoxia and ABG PO2 in 30s. Patient was started on oxygen. Intervention radiology was consulted for possible catheter TPA. Based on recommendations to initiate anticoagulation by IR hospitalist service was consulted. At the time of evaluation patient is alert and oriented. She is able to talk in near full sentences. She is on 2 L oxygen. Profoundly dyspneic. She endorses history as above. She denies pleuritic chest pain, hemoptysis. 02/17-patient feels a lot better. Hemodynamic stable. On 2 L oxygen. Systolics at goal. No pleuritic chest pain. Shortness of breath improved. On anticoagulation on Eliquis. Discussed with patient's daughter. Daughter insists patient to be monitored in ICU. Echo pending. Case discussed with interventional radiology Dr. Mykel Giles who recommended against TPA based on size of emboli/RV LV ratio. No overnight telemetry events. Continue physical therapy. Echocardiogram reviewed. EF 57%. Normal LV size but evidence of pulmonary hypertension. Patient systolics dropped to 80s following home dose metoprolol. Antihypertensive discontinued. Crystalloid bolus/chest x-ray/EKG/troponin. Start pressors to maintain map around 70. Progressive hypotension/shock following crystalloids and ongoing vasopressors. Case discussed with [place] security associate Dr. Majano. Recommended TPA initiation. Risk and benefit was discussed with patient and patient's daughter Vicente on phone. Explained the risk of intracranial hemorrhage/life-threatening bleed however benefits would outweigh the risk in light of refractory shock. Family and patient agrees for TPA/tertiary center transfer. Highly appreciate [place] security associate Dr. Majano's help excepting patient for further management. Patient will be transferred via air ambulance. Date of admission: 02/17/20 13:39 Discharge date: 02/18/20 Primary care physician: Shanel Obrien Consults: 02/17/20 Consult to Physician [CONS] Stat Comment: Consulting Provider: Wan Melgar Reason For Exam: Physician to Consult Discharge Meds Discharge Medications Home Medications trazodone 150 mg tablet 150 mg PO HS 05/22/16 [History Confirmed 02/17/20 Last Taken 02/06/20] citalopram 40 mg tablet 40 mg PO DAILY 90 Days 05/05/18 [History Confirmed 02/17/20 Last Taken 02/07/20 07:00] albuterol sulfate 1 inh INHALATION DAILYP PRN 02/01/20 [History Confirmed 02/17/20 Last Taken Unknown] cyclobenzaprine 5 mg PO DAILYP PRN 02/01/20 [History Confirmed 02/17/20 Last Taken 01/19/20] folic acid 1 mg PO DAILY 02/01/20 [History Confirmed 02/17/20 Last Taken 02/06/20] furosemide 20 mg PO DAILY 02/01/20 [History Confirmed 02/17/20 Last Taken 02/06/20] meloxicam 15 mg PO DAILY 02/01/20 [History Confirmed 02/17/20 Last Taken 01/31/20] metoprolol tartrate 50 mg PO BID 02/01/20 [History Confirmed 02/17/20 Last Taken 02/07/20 07:00] potassium chloride [Klor-Con M20] 20 meq PO [facility] 02/01/20 [History Confirmed 02/17/20 Last Taken 02/06/20] pregabalin [Lyrica] 150 mg PO BID 02/01/20 [History Confirmed 02/17/20 Last Taken 02/06/20] aspirin 325 mg PO BID #60 tab 02/07/20 [Rx Confirmed 02/17/20 Last Taken Unknown] docusate sodium 100 mg PO BID #60 cap 02/07/20 [Rx Confirmed 02/17/20 Last Taken Unknown] hydrocodone-acetaminophen 1 - 2 tab PO Q4HP PRN #75 tab 02/07/20 [Rx Confirmed 02/17/20 Last Taken Unknown] methotrexate sodium 2.5 mg tablet See Rx Instructions .ROUTE .COMPLEX #40 unknown measurement unit code: each 02/07/20 [Rx Confirmed 02/17/20 Last Taken 02/02/20] COURSE Hospital Course Hospital course: . Discharge diagnosis: . Time Spent with Patient Time attestation: Total time spent providing and/or coordinating discharge services: EXAM Constitutional Vitals: Temp Pulse Resp BP Pulse Ox 98.7 F 68 21 112/68 97 02/18/20 13:00 02/18/20 15:16 02/18/20 15:16 02/18/20 13:00 02/18/20 15:16 Discharge Data Data Completed and Pending Labs on day of discharge: Labs from last 24 hours 02/18/20 02/18/20 02/18/20 16:05 14:50 14:50 WBC Pending Pending RBC Pending Pending Hgb Pending Pending Hct Pending Pending MCV Pending Pending MCH Pending Pending MCHC Pending Pending RDW Pending Pending Plt Count Pending Pending MPV Pending Pending Total Counted Seg Neutrophils % Band Neutrophils % Lymphocytes % Monocytes % (Manual) Metamyelocytes % Nucleated RBCs Platelet Estimate RBC Morphology Polychromasia Anisocytosis Macrocytosis VBG Lactic Acid Pending Sodium Potassium Chloride Carbon Dioxide Anion Gap BUN Creatinine GFR Calculation Glucose Uric Acid Calcium Phosphorus Magnesium Total Bilirubin Direct Bilirubin GGT AST ALT Alkaline Phosphatase Lactate Dehydrogenase Troponin T Total Protein Albumin Globulin Albumin/Globulin Ratio Triglycerides 02/18/20 02/18/20 02/18/20 14:50 13:03 13:03 WBC RBC Hgb Hct MCV MCH MCHC RDW Plt Count MPV Total Counted Seg Neutrophils % Band Neutrophils % Lymphocytes % Monocytes % (Manual) Metamyelocytes % Nucleated RBCs Platelet Estimate RBC Morphology Polychromasia Anisocytosis Macrocytosis VBG Lactic Acid 4.0 H* Sodium Pending Potassium Pending Chloride Pending Carbon Dioxide Pending Anion Gap Pending BUN Pending Creatinine Pending GFR Calculation Pending Glucose Pending Uric Acid Pending Calcium Pending Phosphorus Pending Magnesium Pending Total Bilirubin Pending Direct Bilirubin Pending GGT Pending AST Pending ALT Pending Alkaline Phosphatase Pending Lactate Dehydrogenase Pending Troponin T < 0.01 Total Protein Pending Albumin Pending Globulin Pending Albumin/Globulin Ratio Pending Triglycerides Pending 02/18/20 02/18/20 04:47 04:47 WBC 16.0 H RBC 3.56 L Hgb 11.6 Hct 37.0 MCV 103.9 H MCH 32.6 MCHC 31.4 RDW 15.7 H Plt Count 299 MPV 9.4 Total Counted 100 Seg Neutrophils % 79 H Band Neutrophils % Not Reportable Lymphocytes % 16 Monocytes % (Manual) 4 Metamyelocytes % 1 H Nucleated RBCs 1 H Platelet Estimate Normal RBC Morphology Abnorm A Polychromasia 1+ A Anisocytosis 1+ A Macrocytosis 2+ A VBG Lactic Acid Sodium 140 Potassium 4.5 Chloride 106 Carbon Dioxide 21 L Anion Gap 13.0 BUN 26 H Creatinine 0.9 GFR Calculation 69 Glucose 103 Uric Acid 9.1 H Calcium 9.2 Phosphorus 3.9 Magnesium 2.7 H Total Bilirubin 0.7 Direct Bilirubin 0.3 GGT 286 H AST 397 H ALT 370 H Alkaline Phosphatase 172 H Lactate Dehydrogenase 801 H Troponin T Total Protein 6.5 Albumin 3.5 Globulin 3.0 Albumin/Globulin Ratio 1.2 Triglycerides 113 Discharge Plan Patient/Caregiver Discharge Instructions Prescriptions: No Action methotrexate sodium 2.5 mg tablet See Rx Instructions .ROUTE .COMPLEX Qty: 40 RF: 0 trazodone 150 mg tablet 150 mg PO HS RF: 0 citalopram 40 mg tablet 40 mg PO DAILY 90 Days RF: 0 potassium chloride [Klor-Con M20] 20 mEq Tablet,Er Particles/Crystals 20 meq PO QAC RF: 0 metoprolol tartrate 50 mg Tablet 50 mg PO BID RF: 0 furosemide 20 mg Tablet 20 mg PO DAILY RF: 0 cyclobenzaprine 5 mg Tablet 5 mg PO DAILYP PRN (Reason: MUSCLE SPASMS) RF: 0 pregabalin [Lyrica] 150 mg Capsule 150 mg PO BID RF: 0 meloxicam 15 mg tablet 15 mg PO DAILY RF: 0 folic acid 1 mg tablet 1 mg PO DAILY RF: 0 albuterol sulfate 90 mcg/actuation Hfa Aerosol Inhaler 1 inh INHALATION DAILYP PRN (Reason: Shortness Of Breath) RF: 0 hydrocodone-acetaminophen 10-325 mg Tablet 1 - 2 tab PO Q4HP PRN (Reason: Pain Level 3-6) Qty: 75 RF: 0 aspirin 325 mg Tablet,Delayed Release (Dr/Ec) 325 mg PO BID Qty: 60 RF: 0 docusate sodium 100 mg Capsule 100 mg PO BID Qty: 60 RF: 0 Follow Up Plan Follow up with: Shanel Obrien ARNP [Primary Care Provider] - Patient Disposition: [facility] Prognosis: Serious Overall status at discharge: patient is not back to baseline Discharge Orders: Discharge Order (Routine); Ordered 02/18/20 Ordered By: Wan SIDHU VTE Deep Vein Thrombosis/Pulmonary Embolism Present on Admission: No
--- NOTE | 2020-02-18 17:46 | Procedure Note ---
PROC Central Line Placement Right IJ: Consent obtained: written consent Date of Procedure: 02/17/20 Time out performed: Yes Patient placed on monitor/pulse ox: Yes MD prep: mask, sterile gown, sterile gloves and cap Central line prep: Povidone-Iodine 1%, 2% Chlorhexidine scrub, large sterile drapes applied and proper hand hygiene Local anesthesia used: lidocaine 1% Ultrasound used for placement: Yes Central line lumen inserted: quad and 20 cm Post procedure: sutured in place, good blood return, all ports aspirated, flushed, capped and sterile dressing applied Post procedure x-ray: tip of catheter in good position and no pneumothorax seen Patient tolerated procedure: well and no complications Complications: none
[2020-02-18 18:52] LABS: ALT/SGPT 571 U/l (0-40); Albumin 3.4 gm/dL (3.2-5.2); Albumin/Globulin Ratio 1.2 (1.0-2.3); Alkaline Phosphatase 232 U/L (39-117); Bilirubin,Total 1.7 mg/dL (0.0-1.0); Calcium 8.3 mg/dl (8.6-10.4); Carbon Dioxide 20 mmol/L (22-30); Chloride 102 mmol/L (96-108); Globulin 2.8 gm/dL (2.2-3.7); Glucose 124 mg/dL (70-105); Triglycerides 116 mg/dl (<150)
[2020-02-18 19:03] LABS: AST/SGOT 740 U/l (0-37)
[2020-02-18 19:04] LABS: Basophils # (Auto) 0.09 K/mcL (0.00-0.30); Basophils % (Auto) 0.5 % (0.0-2.0); Eosinophils # (Auto) 0.04 K/mcL (0.00-0.70); Eosinophils % (Auto) 0.2 % (0.0-7.0); Granulocytes % (Auto) 81.9 % (38.0-78.0); Hematocrit 38.7 % (34.1-44.9); Lymphocytes # (Auto) 2.36 K/mcL (1.50-4.80); Lymphocytes % (Auto) 11.9 % (15.5-49.0); Mean Cell Volume 105.2 fL (80.0-100.0); Mean Platelet Volume 9.9 fL (7.4-10.4); Monocytes # (Auto) 1.08 K/mcL (0.10-0.90); Monocytes % (Auto) 5.5 % (1.0-12.0); Platelet Count 313 K/mcL (140-440); RBC 3.68 M/mcL (3.59-5.38); WBC 19.8 K/mcL (4.50-11.00)
[2020-02-18 19:17] LABS: Blood Urea Nitrogen 32 mg/dl (8-23); Glomerular Filtration Rate 40; Lactate Dehydrogenase 1202 U/L (94-250); Phosphorous 7.3 mg/dL (2.7-4.5); Uric Acid 11.2 mg/dL (2.5-8.0)
== END 2020-02-18 17:55 | disposition short-term general hospital (02) | DRG 559 ==
LOC: ED 07:28 → ICU 13:39
PROVIDERS: ADMIT Internal Medicine; ATTEND Internal Medicine